=== PATIENT | female | born 1975 ===

== ENCOUNTER 2025-04-23 14:28 | Emergency (ER) | payer SELFPAY ==
[2025-04-23 14:33] VITALS: BP 143/76; PULSE 65; RESP 18; TEMP 36.6; O2SAT 95; BMI 38.9
--- OUTSIDE RECORDS SUMMARY | 2025-04-23 14:35 | XMS_ITS | Clinical Summary ---
Author Organization [facility] Administrative Offices Address [address] [place] [address] Care Team Providers Care Supervisor Polishing Name Role Phone Unavailable Primary Care Provider Unavailabl e Allergies No known active allergies Medications losartan (COZAAR) 100 mg tablet Take 1 Tablet by mouth daily. 09/22/2024 Active FLUoxetine (PROzac) 40 mg capsule Take 40 mg by mouth daily. Active omeprazole (PriLOSEC) 20 mg Capsule, Delayed Release(E.C.) Take 20 mg by mouth 1 time daily as needed. Active Active Problems No known active problems Encounters Date Type Department Care Team Description 04/07/2025 External Device Data [facility] ABSTRACTION Provider, Abstract 04/06/2025 External Device Data [facility] ABSTRACTION Provider, Abstract 03/02/2025 External Device Data [facility] ABSTRACTION Provider, Abstract from Last 3 Months Social History Tobacco Use Types Packs/Day Years Used Date Smoking Tobacco: Never Smokeless Tobacco: Never Feeling Safe Answer Date Recorded Are you in a relationship wi th someone who hurts you emotionally and/or physically? 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 Gender Identity Not on file Sexual Orientation Not on file Last Filed Vital Signs Vital Sign Reading Time Taken Comments Blood Pressure 145/88 12/25/2024 9:30 AM CDT Pulse 62 12/25/2024 9:30 AM CDT Temperature 36.2 C (97.1 F) 12/25/2024 8:47 AM CDT Respiratory Rate 16 12/25/2024 9:30 AM CDT Oxygen Saturation 94% 12/25/2024 9:30 AM CDT Inhaled Oxygen Concentration - - Weight 98 kg (216 lb) 12/25/2024 6:26 AM CDT Height 154.9 cm (5' 1 ) 12/25/2024 6:26 AM CDT Body Mass Index 40.81 12/25/2024 6:26 AM CDT Plan of Treatment Health Maintenance Due Date Last Done Comments Pre-Diabetes and Diabetes Screening 1977 DTAP/TDAP/TD VACCINES (1 - Tdap) 1996 HEPATITIS B VACCINES (1 of 3 - 19+ 3-dose series) 1996 HPV/Cotest (21-29) 1998 CERVICAL CANCER SCREENING 11/19/2007 HPV/Cotest (30-65) 11/19/2007 PAP SMEAR 11/19/2007 BREAST CANCER SCREENING 2017 COLORECTAL SCREENING 2022 Colorectal Cancer Screening 2022 FIT-DNA Q 3 years 2022 FIT/FOBT Q 1 year 2022 Flex Sig/CT Colonography Q 5 years 2022 INFLUENZA VACCINE (#1) 2025 COVID-19 Vaccine ( season) 02/15/202503/2021, 01/25/2021 Advance Directives For more information, please contact: [phone] * Full Code (Latest Code Status on File) Date Activated Date Inactivated Comments 12/25/2024 6:55 AM 12/25/2024 11:39 AM
--- OUTSIDE RECORDS SUMMARY | 2025-04-23 14:35 | XMS_ITS | Encounter Summary ---
Author Organization [facility] Address [address] [place] [address] Care Team Providers Care Metal Technician Name Role Phone Unavailable Primary Care Provider Unavailabl e Encounter Details Date Type Department Care Team (Latest Contact Info) Description 08/30/2003 Outpatient Historical [facility] Max[facility] Surgery[address] [place] [id number] Chandu Desai, YOUSIF NO ADDRESS ON FILE TOOTH POSITION ANOMALY (Primary Dx) Social History Tobacco Use Types Packs/Day Years Used Date Smoking Tobacco: Never Assessed Comments Unknown Sex and Gender Information Value Date Recorded Sex Assigned at Not on file 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
--- OUTSIDE RECORDS SUMMARY | 2025-04-23 14:35 | XMS_ITS | Clinical Summary ---
Author Organization [employer] [facility] Address [address] 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
--- NOTE | 2025-04-23 14:37 | XRR_ITS ---
PROCEDURE INFORMATION: Exam: XR Left Ankle Exam date and time: 04/23/2025 3:14 PM Age: 49 years old Clinical indication: Pain; Ankle; Left; Additional info: Fall/injury TECHNIQUE: Imaging protocol: Radiologic exam of the left ankle. Views: 3 or more views. COMPARISON: No relevant prior studies available. FINDINGS: Bones/joints: No fracture or dislocation. Achilles and plantar calcaneal bone spurs. Soft tissues: Normal. XR/XR ankle LT min 3V* [id number] IMPRESSION: No acute findings.
--- NOTE | 2025-04-23 15:17 | XRR_ITS ---
PROCEDURE INFORMATION: Exam: XR Left Foot Exam date and time: 04/23/2025 3:16 PM Age: 49 years old Clinical indication: Pain; Foot; Left; Additional info: Pain base 5th mtp after fall TECHNIQUE: Imaging protocol: Radiologic exam of the left foot. Views: 3 or more views. COMPARISON: CR XR ankle LT min 3V* [id number] 04/23/2025 3:14 PM FINDINGS: Bones/joints: No acute fracture or dislocation. Achilles and plantar calcaneal bone spurs. Soft tissues: Normal. XR/XR foot LT min 3V* [id number] IMPRESSION: No acute findings.
[2025-04-23 15:59] VITALS: BP 148/87; PULSE 67; O2SAT 96
--- NOTE | 2025-04-23 16:39 | W.ED.EXTPRO ---
HPI - Extremity Problem General: Chief complaint: Extremity Injury, Lower Stated complaint: Fall-L ankle Pain Time Seen by Provider: 04/23/25 14:56 History of Present Illness: Patient presenting with left ankle and foot pain after falling down 2 steps, she does recall twisting her ankle, she is able to bear weight but has pain when doing so, no history of surgical intervention to the affected leg. 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 Related Data Home Medications ?Medication ?Instructions ?Recorded ?Confirmed No Known Home Medications 10/08/24 10/08/24 Allergies Allergy/AdvReac Type Severity Reaction Status Date / Time No Known Allergies Allergy Unverified 10/08/24 08:34 [facility] PFSH: Social History Smoking and tobacco/nicotine status: never used tobacco/nicotine Physical Exam Narrative: EXAM NARRATIVE: Gen: A&Ox4, no acute distress, nontoxic appearing HEENT: Normocephalic, atraumatic, no scleral icterus, external ears normal, moist mucous membranes Neck: Supple, full range of motion, no observable masses Lungs: No Respiratory distress, Lungs clear to auscultation bilaterally no rales, rhonchi, wheezing CV: Regular rate and rhythm, no murmur, no pitting edema to lower extremities bilaterally Abdomen: Soft, nondistended, nontender to palpation MSK: Minimal tenderness to the lateral malleolus and the base of the fifth metatarsal of the left foot, no significant swelling, normal range of motion, no open wounds or obvious deformity, normal distal pulses and perfusion to the toes, no tenderness to palpation of the tibia-fibula knee or hip, able to stand up and bear weight without assistance Skin: No rashes, petechiae, lesions. Normal color per patient. Neuro: Alert and oriented, no slurred speech, sensation and strength grossly intact all 4 extremities Psych: Appropriate for situation. Course Vital Signs: Vital signs: Vital Signs Temperature 97.9 F 04/23/25 14:33 Pulse Rate 67 04/23/25 15:59 Respiratory Rate 18 04/23/25 14:33 Blood Pressure 148/87 04/23/25 15:59 Pulse Oximetry 96 04/23/25 15:59 Oxygen Delivery Me thod Room Air 04/23/25 15:59 MDM - Extremity (Nontraumatic) Medical Decision Making 49-year-old female presenting with left ankle pain with tenderness to the lateral malleolus and base of the fifth metatarsal after minor inversion injury falling down 2 steps, x-rays negative for fracture, suspect sprain, recommend Timbo wrap, daily range of motion, elevation while immobilized at night, ice, NSAIDs, PCP follow-up Lab Data Radiology Impressions Ankle X-Ray 04/23/25 14:37 IMPRESSION: No acute findings. Foot X-Ray 04/23/25 15:17 IMPRESSION: No acute findings. All radiology interpretation(s) finalized by discharge ED provider radiology interpretation(s): Ankle and foot x-ray negative for fracture Discharge Plan Discharge Patient Disposition: Home Clinical Impression: Ankle sprain and strain Condition: Stable Prescriptions: No Action No Known Home Medications Discharge Orders: Discharge ED (Routine); Ordered 04/23/25 Ordered By: Kenroy Frank Referrals: Isreal Nielsen MD [Primary Care Provider, Family Practice] Patient Instructions: Patient Portal & Cameron Instructions, Ankle Sprain (DC) Print Language: Frisian Coding Level of Care Code ED Fire Operations Forester for Chasity Nassar
== END 2025-04-23 17:06 | disposition home or self-care (01) ==
PROVIDERS: Emergency Provider Student in an Organized Health Care Education/Training Program; PCP Family Medicine
DX: S93.402A Sprain of unspecified ligament of left ankle, initial encounter (principal); W10.9XXA Fall (on) (from) unspecified stairs and steps, initial encounter
CPT/HCPCS: 73610; 73630; 99283